=== PATIENT | male | born 1970 | race Caucasian/White ===

== ENCOUNTER 2016-12-10 17:09 | Emergency (ER) | payer MEDICAID ==
--- NOTE | 2016-12-10 17:58 | ED Physician Chart ---
Chief Complaint/HPI - Patient Information Date Seen:: 12/10/16 Time Seen:: 17:57 Chief Complaint:: EPIGASTRIC PAIN AWOKE PT AT 7 AM. Allergies:: Allergies Allergy/AdvReac Type Severity Reaction Status Date / Time No Known Allergies Allergy Verified 05/28/16 17:30 This 46-year-old male was awaken by severe epigastric pain at 7 AM this morning. The pain has been intermittent on and off at times is severe as an 8/ 10 in severity and at other times totally resolving. He describes the pain as being sharp and worse when he moves. There are no relieving factors. The pain radiates around the right side of the upper abdomen into the subscapular region. The pain is described as cramping and was accompanied by nausea with 3 episodes of vomiting. Patient had no associated diarrhea. Past medical history is positive for an inguinal hernia repair a number of years ago. The patient has experienced fevers, chills and diaphoresis . He was able to eat and hold down a saltine cracker and has complete loss of appetite today. Patient had been on the [employer] and had been drinking alcohol. <Theo Tapia - Last Filed: 12/10/16 19:02> - Patient Information Allergies:: Allergies Allergy/AdvReac Type Severity Reaction Status Date / Time No Known Allergies Allergy Verified 05/28/16 17:30 Vitals:: Vital Signs - 8 hr 12/10/16 12/10/16 17:58 19:49 Temp 98.6 F HR 15 75 RR 17 BP 112/65 113/57 O2 Sat % 97 <Balta Dos Santos - Last Filed: 12/10/16 21:14> Review of Systems - Review of Systems General/Constitutional: Fever, Chills, No weakness, Diaphoresis, Loss of appetite Skin: No skin lesions, No rash, No bruising Head: No headache, No light-headedness Eyes: No loss of vision, No pain, No diplopia ENT: No earache, No sore throat, No tinnitus Neck: No neck pain, No swelling, No thyromegaly, No stiffness, No mass noted Cardio Vascular: No chest pain, No palpitations, No orthopnea Pulmonary: SOB, No cough, No sputum GI: Nausea, Vomiting, No diarrhea, Pain, No hematochezia, No constipation, No hematemesis G/U: No dysuria, No frequency, No hematuria Musculoskeletal: No bone or joint pain, Back pain, No muscle pain Endocrine: No polyuria, No polydipsia Psychiatric: No suicidal ideation Hematopoietic: No bruising, No lymphadenopathy Allergic/Immuno: No urticaria, No angioedema Neurological: No syncope, No focal symptoms, Weakness (the patient's weakness is described as generalized.), No paresthesia, No headache, No seizure, No dizziness, No vertigo <Theo Tapia - Last Filed: 12/10/16 19:02> Family Medical History - Family Member Mother History Unknown: Yes Grandmother Living Status: Hx Family Cancer: Yes <Theo Tapia - Last Filed: 12/10/16 19:02> Labs/Radiology/EKG Results - Lab Results Results: Laboratory Tests 12/10/16 12/10/16 12/10/16 18:52 18:52 18:52 WBC 8.4 RBC 5.07 Hgb 14.7 Hct 43.3 MCV 85.3 MCH 29.0 MCHC Differential 34.1 RDW 12.5 Plt Count 155 MPV 9.5 Neutrophils % 82.5 H Lymphocytes % 9.5 L Monocytes % 7.3 Eosinophils % 0.4 Basophils % 0.3 Sodium 133 L Potassium 3.6 Chloride 112 H Carbon Dioxide 20.7 L Anion Gap 3.9 L BUN 9 Creatinine 0.7 Est GFR ( Amer) > 60.0 Est GFR (Non-Af Amer) > 60.0 BUN/Creatinine Ratio 12.9 Glucose 94 Whole Bld Lactic Acid Calcium 8.3 L Total Bilirubin 0.5 AST 10 L ALT 10 Alkaline Phosphatase 37 Troponin I < 0.01 L Total Protein 6.1 Albumin 3.5 L Globulin 2.6 Albumin/Globulin Ratio 1.4 Amylase 52 Lipase 17 12/10/16 18:52 WBC RBC Hgb Hct MCV MCH MCHC Differential RDW Plt Count MPV Neutrophils % Lymphocytes % Monocytes % Eosinophils % Basophils % Sodium Potassium Chloride Carbon Dioxide Anion Gap BUN Creatinine Est GFR ( Amer) Est GFR (Non-Af Amer) BUN/Creatinine Ratio Glucose Whole Bld Lactic Acid 1.13 Calcium Total Bilirubin AST ALT Alkaline Phosphatase Troponin I Total Protein Albumin Globulin Albumin/Globulin Ratio Amylase Lipase - Radiology Results Results: Ultrasound abdomen prelim report per radiology Multiple gallstones, wall 4 mm, CBD within normal limits <Balta Dos Santos - Last Filed: 12/10/16 21:14> ED Septic Shock - . Is Septic Shock (SBP<90, OR Lactate>4 mmol\L) present?: No - <6hrs of presentation: Vital Signs: Vital Signs - 8 hr 12/10/16 12/10/16 17:58 19:49 Temp 98.6 F HR 15 75 RR 17 BP 112/65 113/57 O2 Sat % 97 <Balta Dos Santos - Last Filed: 12/10/16 21:14> Reassessment (Disposition) - Reassessment Reassessment:: Patient has acute epigastric pain with nausea vomiting due to biliary colic. Labs showed no obstructive pattern. The ears no leukocytosis. There is no indication of infection at this time. Common bile duct appears within normal limits on ultrasound. Symptoms have totally resolved. Patient did take by mouth challenge and was able to tolerate by mouth food without any symptoms. Gave prescription for cimetidine and Zofran. Recommended follow-up with PCP from referral to general surgery for possible elective cholecystectomy. Discussed return to ER precautions. Patient understands and agrees with the plan. Reassessment Condition:: Improved - Diagnosis Diagnosis:: Acute epigastric pain with nausea vomiting due to acute biliary colic - Aftercare/Follow up Instructions Aftercare/Follow-Up Instructions:: Counseled pt regarding lab results/diagnosis & need follow up, Refer to Discharge Instructions Medication Prescribed:: Cimetidine Zofran - Patient Disposition Discharge/Transfer:: Home Time:: 21:13 Condition at Disposition:: Improved <Balta Dos Santos - Last Filed: 12/10/16 21:14> ED Discharge Plan <Theo Tapia - Last Filed: 12/10/16 19:02> <Balta Dos Santos - Last Filed: 12/10/16 21:14> - Patient Disposition Admit/Discharge/Transfer: PT DISCHARGED HOME Condition at Disposition: Improved Instructions: Biliary Colic
[2016-12-10] MEDS ORDERED: Sodium Chloride 0.9% 1,000 ML IV ONE (18:38)
[2016-12-10] MEDS ORDERED: Morphine Sulfate 4 mg/mL 1mL Syr IVP ONE (18:39)
[2016-12-10] MEDS ORDERED: Aspirin 81mg Chewable Tab PO STA (18:57)
[2016-12-10] MEDS ORDERED: Morphine Sulfate 4 mg/mL 1mL Syr ONE (18:58)
[2016-12-10] MEDS ORDERED: Aspirin 81mg Chewable Tab ONE (19:12)
[2016-12-10 19:21] LABS: ALB/GLOB RATIO 1.4 (1.0-1.8); ALKALINE PHOSPHATASE 37 U/L (34-104); AMYLASE SERUM 52 U/L (29-103); ANION GAP 3.9 (7.0-16.0); BILIRUBIN,TOTAL 0.5 mg/dL (0.3-1.0); BUN - UREA NITROGEN 9 mg/dL (7-25); BUN/CREATININE RATIO 12.9; CALCIUM SERUM 8.3 mg/dL (8.6-10.3); CARBON DIOXIDE 20.7 mEq/L (21.0-31.0); CHLORIDE 112 mEq/L (98-107); CREATININE - SERUM 0.7 mg/dL (0.7-1.3); GLUCOSE 94 mg/dL (70-105); LIPASE 17 U/L (11-82); POTASSIUM SERUM 3.6 mEq/L (3.5-5.1); SGOT 10 U/L (13-39); SGPT/ALT 10 U/L (7-52); SODIUM SERUM 133 mEq/L (136-145)
[2016-12-10 20:11] LABS: % BASOPHILS 0.3 % (0.0-2.0); % EOSINOPHILS 0.4 % (0.0-5.0); % LYMPHOCYTES 9.5 % (20.0-50.0); % MONOCYTES 7.3 % (2.0-10.0); % NEUTROPHILS 82.5 % (40.0-80.0); HEMATOCRIT 43.3 % (39.0-49.0); HEMOGLOBIN 14.7 gm/dL (13.2-17.3); MEAN CELL VOLUME 85.3 fl (80-99); MEAN CORPUSCULAR HGB CONC 34.1 pg (28.0-36.0); MEAN PLATELET VOLUME 9.5 fl; PLATELET COUNT 155 Th/cmm (150-400); RED BLOOD COUNT 5.07 Mil/cmm (4.30-5.70); RED CELL DISTRIBUTION WIDTH 12.5 % (11.5-20.0)
[2016-12-10 20:14] LABS: WHITE BLOOD COUNT 8.4 Th/cmm (4.8-10.8)
[2016-12-10] MEDS ORDERED: Dexamethasone Sodium Phos 4 mg/mL Vial IVP STA (21:02)
[2016-12-10] MEDS ORDERED: Dexamethasone Sodium Phos 10 mg/mL PF Vial ONE (21:23)
[2016-12-10 21:27] LABS: URINE BILIRUBIN NEGATIVE (NEGATIVE); URINE BLOOD NEGATIVE (NEGATIVE); URINE COLOR YELLOW; URINE GLUCOSE (UA) NEGATIVE (NEGATIVE); URINE KETONE NEGATIVE (NEGATIVE); URINE PH 6.5; URINE PROTEIN NEGATIVE (NEGATIVE); URINE UROBILINOGEN 0.2 E.U./dL (0.2 - 1.0)
[2016-12-10 21:28] LABS: URINE BACTERIA NONE SEEN /hpf (NONE SEEN); URINE EPITHELIAL CELLS RARE /lpf (FEW); URINE RBC NONE SEEN /hpf (0-5); URINE WBC 0-2 /hpf (0-5)
--- NOTE | 2016-12-11 09:13 | Diagnostic Imaging Report ---
History: Right upper quadrant pain Findings: 2-D real-time ultrasound was performed of the right upper quadrant. Multiple gallstones are seen. The wall is thickened measuring 4.4 mm. The common bile duct measures 5.3 mm Impression cholelithiasis with thickening of the gallbladder wall raising question of cholecystitis. No biliary dilatation
--- NOTE | 2016-12-11 11:31 | ED Physician Chart ---
Chief Complaint/HPI - Patient Information Date Seen:: 12/10/16 Chief Complaint:: AWAKENED BY EPIGASTRIC PAIN AT 7 AM History of Present Illness:: SEE MY ORGINAL NOTE FOR HPI. Allergies:: Allergies Allergy/AdvReac Type Severity Reaction Status Date / Time No Known Allergies Allergy Verified 05/28/16 17:30 Review of Systems - Review of Systems General/Constitutional: Fever, Chills, Diaphoresis Skin: No skin lesions, No rash Head: No headache Eyes: No loss of vision, No pain, No diplopia ENT: No earache, No sore throat Neck: No neck pain, No swelling, No stiffness, Mass noted Cardio Vascular: No chest pain GI: Nausea, Vomiting, No diarrhea, Pain, No melena, No constipation G/U: No dysuria, No frequency, No hematuria Musculoskeletal: No bone or joint pain, Back pain, No muscle pain Endocrine: No polyuria, No polydipsia Psychiatric: Prior psych history, Depression, Anxiety, No suicidal ideation Hematopoietic: No bruising, No lymphadenopathy Allergic/Immuno: No urticaria, No angioedema Neurological: Weakness (Weaknesses generalized.), No paresthesia, No headache, No confusion, No vertigo Family Medical History - Family Member Mother History Unknown: Yes Hx Family Cancer: No Hx Family Coronary Artery Disease: No Hx Family Congestive Heart Failure: No Hx Family Hypertension: No Hx Family Diabetes: No Hx Family Seizures: No Hx Family COPD: No Grandmother Living Status: Hx Family Cancer: Yes Hx Family Hypertension: No Hx Family Diabetes: No Hx Family Seizures: No Hx Family Dementia: No Hx Family AIDS: No Hx Family COPD: No Hx Family Hepatitis: No Physical Exam - Physical Examination General/Constitutional: Awake, Well-developed, well-nourished, Alert, Ambulatory Other Gen/Cons comments:: At the time of initial examination the patient appeared to be in moderate to severe discomfort. Head: Atraumatic Eyes: Lids, conjuctiva normal, PERRL, EOMI Other Eyes comments:: Sclera were anicteric. Skin: Nl inspection, No rash, No skin lesions, No ecchymosis, Well hydrated ENMT: External ears, nose nl, Nasal exam nl, Lips, teeth, gums nl, Oropharynx nl , Tonsils nl ( Adequate oral hydration.) Neck: Nontender, Full ROM w/o pain, No JVD, No nuchal rigidity, No mass, No stridor Respiratory: Nl effort/Exclusion, Clear to Auscultation, No Wheeze/Rhonchi/Rales Cardio Vascular: RRR, No murmur, gallop, rubs, NL S1 S2 Other Cardio Vascular comments:: Patient had good pulses in all four extremities. GI: Nondistended, No mass/bruits, No McBurney tenderness Other GI comments:: The patient's abdomen was flat nondistended. No surgical scars appreciated. Bowel sounds were present but decreased. There was +3 tenderness in the epigastric area and +4 TENDERNESS IN THE RIGHT UPPER QUADRANT. Shanks sign was present. No tenderness in the lower abdomen and no hernias. Genital exam was unremarkable. : No CVA tenderness, NL external genitalia Extremities: No tenderness or effusion, Full ROM, normal strength in all extremities, No edema Neuro/Psych: Alert/oriented, Normal sensory exam, Normal motor strength, Judgement/insight normal, Mood normal, No focal deficits Misc: Normal back, No paraspinal tenderness Labs/Radiology/EKG Results - Lab Results Results: Laboratory Tests 12/10/16 12/10/16 12/10/16 18:52 18:52 18:52 WBC 8.4 RBC 5.07 Hgb 14.7 Hct 43.3 MCV 85.3 MCH 29.0 MCHC Differential 34.1 RDW 12.5 Plt Count 155 MPV 9.5 Neutrophils % 82.5 H Lymphocytes % 9.5 L Monocytes % 7.3 Eosinophils % 0.4 Basophils % 0.3 Sodium 133 L Potassium 3.6 Chloride 112 H Carbon Dioxide 20.7 L Anion Gap 3.9 L BUN 9 Creatinine 0.7 Est GFR ( Amer) > 60.0 Est GFR (Non-Af Amer) > 60.0 BUN/Creatinine Ratio 12.9 Glucose 94 Whole Bld Lactic Acid Calcium 8.3 L Total Bilirubin 0.5 AST 10 L ALT 10 Alkaline Phosphatase 37 Troponin I < 0.01 L Total Protein 6.1 Albumin 3.5 L Globulin 2.6 Albumin/Globulin Ratio 1.4 Amylase 52 Lipase 17 Urine Source Urine Color Urine Clarity Urine pH Ur Specific [place] Urine Protein Urine Glucose (UA) Urine Ketones Urine Blood Urine Nitrate Urine Bilirubin Urine Urobilinogen Ur Leukocyte Esterase Urine RBC Urine WBC Ur Epithelial Cells Urine Bacteria Urine Mucus 12/10/16 12/10/16 18:52 19:30 WBC RBC Hgb Hct MCV MCH MCHC Differential RDW Plt Count MPV Neutrophils % Lymphocytes % Monocytes % Eosinophils % Basophils % Sodium Potassium Chloride Carbon Dioxide Anion Gap BUN Creatinine Est GFR ( Amer) Est GFR (Non-Af Amer) BUN/Creatinine Ratio Glucose Whole Bld Lactic Acid 1.13 Calcium Total Bilirubin AST ALT Alkaline Phosphatase Troponin I Total Protein Albumin Globulin Albumin/Globulin Ratio Amylase Lipase Urine Source RANDOM Urine Color YELLOW Urine Clarity CLEAR Urine pH 6.5 Ur Specific [place] 1.015 Urine Protein NEGATIVE Urine Glucose (UA) NEGATIVE Urine Ketones NEGATIVE Urine Blood NEGATIVE Urine Nitrate NEGATIVE Urine Bilirubin NEGATIVE Urine Urobilinogen 0.2 Ur Leukocyte Esterase NEGATIVE Urine RBC NONE SEEN Urine WBC 0-2 Ur Epithelial Cells RARE Urine Bacteria NONE SEEN Urine Mucus FEW The CBC was unremarkable with no leukocytosis or anemia. The urinalysis was negative for any evidence of UTI. Liver function tests were unremarkable. The EKG suggestive but not diagnostic of cardiac ischemia. The troponin level was less than 0.01. The lactic acid was within normal parameters. Ultrasound of the abdomen was positive for multiple gallbladder stones. There was also gallbladder wall thickening. No evidence for obstructive biliary tract. Assessment - Assessment General Assessment: CASE SUMMARY: this 46-year-old male was awaken from sleep at 7 AM this morning. He has severe pain in the epigastric region that waxed and waned until the time of admission which was approximately 3 PM. On physical exam he appeared to be in moderate to severe discomfort and this was addressed with IV morphine and I the Zofran. Patient also received the leader of normal saline IV. His EKG was suggestive of but not diagnostic of myocardial ischemia. His serum troponin Was less than 0.01. At the time I went off duty the case was transferred to Dr. Garcia for final diagnosis and disposition. The ultrasound of the abdomen was pending but did show multiple stones in the gallbladder and gallbladder wall thickening. MDM: DDX for EPIGASTRIC PAIN: NOT Acute pancreatitis based on normal amylase and lipase levels. NOT Acute myocardial ischemia based on The patient's history, physical examination, and a negative troponin level after the pain have been present for 12 hours. NOT Acute sepsis Based on the patient's vital signs and laboratory results. ED Septic Shock - . Is Septic Shock (SBP<90, OR Lactate>4 mmol\L) present?: No ED Discharge Plan - Patient Disposition Admit/Discharge/Transfer: PT DISCHARGED HOME Condition at Disposition: Improved Instructions: Biliary Colic Forms: Work Release Form
== END 2016-12-10 21:45 | disposition home or self-care (01) ==
LOC: ER 17:09
DX: K80.50 Calculus of bile duct without cholangitis or cholecystitis without obstruction (principal)
CPT/HCPCS: 99285; 96374; 96375; 93005; 76705; 84484; 36415; 83605; 85025; 81001; 82150; 83690; 80053; J2405; J7030; Z7610